=== PATIENT | male | born 1995 | race Caucasian/White ===

== ENCOUNTER 2017-02-16 16:22 | Emergency (ER) | payer BC ==
[~2017-02-16] VITALS: Ht 180.3 cm; Wt 94.3 kg
[2017-02-16 16:25] VITALS: BP 125/67
--- NOTE | 2017-02-16 18:27 | PHYS DOC ---
Past History Past Medical History: No Pertinent History Past Surgical History: Other Alcohol Use: Occasionally Drug Use: None Adult General Chief Complaint Chief Complaint: MULTIPLE COMPLAINTS HPI HPI Patient is a 21 year old male who presents to the emergency department for evaluation of a possible toxic ingestion. The patient was brought to the emergency department by his . The patient admittedly took pain medication which she has been taking since having his with some teeth removed earlier this week with Isiah tinoco. The patient currently states that he is having no symptoms and is in no distress. Of note, the patient's voice that she was afraid that he was trying to kill himself. Patient does admit that he has been sad lately and has been under a lot of stress as he has recently had trouble with work. The patient however states that he has no suicidal or homicidal ideation at this time. Patient denies any history of suicidal thoughts or suicidal gestures in the past. The patient states that he feels sad but does not feel like he is depressed currently. The patient states that he wanted to make sure that he did not have any toxic effects from drinking alcohol and taking pain medication at the same time which she states was unintentional. Review of Systems Review of Systems Constitutional: Denies fever or chills [] Eyes: Denies change in visual acuity, redness, or eye pain [] HENT: Denies nasal congestion or sore throat [] Respiratory: Denies cough or shortness of breath [] Cardiovascular: No additional information not addressed in HPI [] GI: Denies abdominal pain, nausea, vomiting, bloody stools or diarrhea [] : Denies dysuria or hematuria [] Musculoskeletal: Denies back pain or joint pain [] Integument: Denies rash or skin lesions [] Neurologic: Denies headache, focal weakness or sensory changes [] Allergies Allergies No known drug allergies Physical Exam Physical Exam Constitutional: Well developed, well nourished, no acute distress, non-toxic appearance. [] HENT: Normocephalic, atraumatic, bilateral external ears normal, oropharynx moist, no oral exudates, nose normal. [] Eyes: PERRLA, EOMI, conjunctiva normal, no discharge. [] Neck: Normal range of motion, no tenderness, supple, no stridor. [] Cardiovascular:Heart rate regular rhythm, no murmur [] Lungs & Thorax: Bilateral breath sounds clear to auscultation [] Abdomen: Bowel sounds normal, soft, no tenderness, no masses, no pulsatile masses. [] Skin: Warm, dry, no erythema, no rash. [] Back: No tenderness, no CVA tenderness. [] Extremities: No tenderness, no cyanosis, no clubbing, ROM intact, no edema. [] Neurologic: Alert and oriented X 3, normal motor function, normal sensory function, no focal deficits noted. [] Psychologic: Affect normal, judgement normal, mood normal. [] Current Patient Data Vital Signs Vital Signs Date Time Temp Pulse Resp B/P (MAP) Pulse Ox O2 Delivery O2 Flow Rate FiO2 02/16/17 16:25 98.0 108 20 96 Room Air Lab Results None performed EKG EKG Not performed[] Radiology/Procedures Radiology/Procedures Not performed[] Course & Med Decision Making Course & Med Decision Making Pertinent Labs and Imaging studies reviewed. (See chart for details) The patient is denying any suicidal or homicidal thoughts at this time and patient states that he feels safe and would like to go home, however he is agreeable to following up tomorrow with the [facility] for further psychiatric evaluation as outpatient. The patient contacted his roommate, Fina , who came to the emergency department. She stated that she did not have any concerns that the patient was currently suicidal. She stated that she felt very safe taking the patient home and stated that she would be with him until his came off of work later this evening. The patient is alert and oriented 3 and is able to make his own medical decisions. The patient showed genuine concern about mixing alcohol and pain medication together and stated that he did not intentionally try to hurt himself. The patient shows no evidence of toxicity with now 4 hours since his ingestion. Patient was discharged home with recommendations to follow-up with outpatient psychiatric services tomorrow. Advised patient to return emergency department for any worsening symptoms. Patient was understanding and in agreement with treatment plan. Dragon Disclaimer Dragon Disclaimer This chart was dictated in whole or in part using Voice Recognition software in a busy, high-work load, and often noisy Emergency Department environment. It may contain unintended and wholly unrecognized errors or omissions. Departure Departure: Impression: Primary Impression: Accidental drug ingestion Disposition: HOME, SELF-CARE Condition: IMPROVED Referrals: HARDY DE LEON MD (PCP) Patient Instructions: Overdose, Accidental Additional Instructions: The amount of alcohol and pain medication that you took earlier today will have no serious toxic effects. Follow-up with [facility] tomorrow. Return to the emergency department for any worsening symptoms. Problem Qualifiers Primary Impression: Accidental drug ingestion Encounter type: initial encounter Qualified Codes: T50.901A - Poisoning by unspecified drugs, medicaments and biological substances, accidental ( unintentional), initial encounter RAHEEM TRAVIS MD Feb 16, 2017 18:27
== END 2017-02-16 19:10 | disposition home or self-care (01) ==
LOC: ER 16:22
DX: T50.901A Poisoning by unspecified drugs, medicaments and biological substances, accidental (unintentional), initial encounter (principal); Y92.89 Other specified places as the place of occurrence of the external cause
CPT/HCPCS: 99283